=== PATIENT | male | born 1955 | race Two or more races ===

== ENCOUNTER 2017-11-07 14:43 | Outpatient (CLI) | payer OTHER | END 2017-11-07 15:01 | disposition home or self-care (01) | LOC: RAD 501 14:43 | DX: R05 Cough (principal); J45.998 Other asthma ==

== ENCOUNTER 2017-12-10 08:49 | Outpatient (CLI) | payer OTHER | END 2017-12-10 09:25 | disposition home or self-care (01) | LOC: TOM 08:49 | DX: R91.1 Solitary pulmonary nodule (principal) ==

== ENCOUNTER → 2020-06-16 | Outpatient (CLI) | payer OTHER | END | disposition home or self-care (01) | LOC: TOM 10:19 | DX: J98.6 Disorders of diaphragm (principal); R91.1 Solitary pulmonary nodule; Z11.3 Encounter for screening for infections with a predominantly sexual mode of transmission; Z12.5 Encounter for screening for malignant neoplasm of prostate; Z12.11 Encounter for screening for malignant neoplasm of colon; I10 Essential (primary) hypertension; Z76.0 Encounter for issue of repeat prescription ==

== ENCOUNTER 2021-01-10 08:38 | Outpatient (CLI) | payer OTHER | END 2021-01-10 08:50 | disposition home or self-care (01) | LOC: RAD 08:38 | PROVIDERS: ATTEND General Practice | DX: M79.644 Pain in right finger(s) (principal) ==

== ENCOUNTER 2021-07-11 10:26 | Emergency (ER) | payer OTHER ==
[~2021-07-11] VITALS: Ht 172.7 cm; Wt 108.0 kg
[2021-07-11] MEDS ORDERED: PARA LA PRESION (10:39)
[2021-07-11] MEDS ORDERED: MEDROLPACK PO (11:40)
== END 2021-07-11 12:31 | disposition home or self-care (01) ==
LOC: ER 10:26
DX: S60.222A Contusion of left hand, initial encounter (principal); X58.XXXA Exposure to other specified factors, initial encounter; Y93.9 Activity, unspecified; Y92.9 Unspecified place or not applicable; I10 Essential (primary) hypertension

== ENCOUNTER 2021-09-12 09:19 | Outpatient (CLI) | payer OTHER ==
[~2021-09-12 09:19] MED LIST: MEDROLPACK PO; PARA LA PRESION
== END 2021-09-12 09:31 | disposition home or self-care (01) ==
LOC: LAB 09:19
PROVIDERS: ATTEND General Practice
DX: Z76.0 Encounter for issue of repeat prescription (principal); I10 Essential (primary) hypertension; J45.20 Mild intermittent asthma, uncomplicated; E11.8 Type 2 diabetes mellitus with unspecified complications; Z11.3 Encounter for screening for infections with a predominantly sexual mode of transmission; Z13.220 Encounter for screening for lipoid disorders; Z12.5 Encounter for screening for malignant neoplasm of prostate; Z12.11 Encounter for screening for malignant neoplasm of colon; E66.9 Obesity, unspecified

== ENCOUNTER 2021-09-14 10:36 | Outpatient (CLI) | payer OTHER | END 2021-09-14 10:41 | disposition home or self-care (01) | LOC: LAB 10:36 | PROVIDERS: ATTEND General Practice | DX: R80.9 Proteinuria, unspecified (principal); I10 Essential (primary) hypertension; E11.9 Type 2 diabetes mellitus without complications ==

== ENCOUNTER 2021-10-12 14:59 | Outpatient (CLI) | payer OTHER | END 2021-10-12 15:01 | disposition home or self-care (01) | LOC: LAB 14:59 | PROVIDERS: ATTEND General Practice | DX: N18.1 Chronic kidney disease, stage 1 (principal); Z12.9 Encounter for screening for malignant neoplasm, site unspecified; N39.0 Urinary tract infection, site not specified; R91.1 Solitary pulmonary nodule ==

== ENCOUNTER 2022-12-11 06:08 | Outpatient (CLI) | payer OTHER | END 2022-12-11 06:29 | disposition home or self-care (01) | LOC: LAB 06:08 | PROVIDERS: ATTEND Radiology Diagnostic Radiology | DX: D64.9 Anemia, unspecified (principal) ==

== ENCOUNTER 2022-12-12 07:12 | Outpatient (CLI) | payer OTHER | END 2022-12-12 07:30 | disposition home or self-care (01) | LOC: MRI 07:12 | PROVIDERS: ATTEND Internal Medicine Hematology & Oncology | DX: D64.9 Anemia, unspecified (principal); L04.2 Acute lymphadenitis of upper limb ==

== ENCOUNTER 2023-05-20 12:12 | Outpatient (CLI) | payer OTHER | END 2023-05-20 12:23 | disposition home or self-care (01) | LOC: TOM 12:12 | PROVIDERS: ATTEND General Practice | DX: S22.42XA Multiple fractures of ribs, left side, initial encounter for closed fracture (principal); R07.89 Other chest pain; T79.8XXD Other early complications of trauma, subsequent encounter; Z48.00 Encounter for change or removal of nonsurgical wound dressing ==

== ENCOUNTER 2024-03-24 14:44 | Outpatient (CLI) | payer OTHER | END 2024-03-24 14:51 | disposition home or self-care (01) | LOC: RAD 14:44 | PROVIDERS: ATTEND General Practice | DX: J45.901 Unspecified asthma with (acute) exacerbation (principal); J20.9 Acute bronchitis, unspecified; R05.9 Cough, unspecified; R06.02 Shortness of breath ==

== ENCOUNTER 2024-03-29 11:25 | Emergency (ER) | payer OTHER ==
[~2024-03-29] VITALS: Ht 177.8 cm; Wt 105.2 kg
[2024-03-29] MEDS ORDERED: METHYLPREDNISOLONE SOD SUCC 125 MG VIAL IV STA (13:05)
[2024-03-29] MEDS ORDERED: ENALAPRILAT DIHYDRATE 2.5 MG/2 ML VIAL IV STA (13:06)
[2024-03-29] MEDS ORDERED: LEVALBUTEROL HCL 1.25 MG/3 ML SOLUTION IH SCH (13:15)
[2024-03-29 14:37] LABS: HEMATOCRIT 41.9 % (39.0-48.0); HEMOGLOBIN 13.9 g/dL (13-16.00); MEAN CELL VOLUME 86.9 fL (80.0-100.00); MEAN CORPUSCULAR HEMOGLOBIN 28.7 pg (27.00-32.0); MEAN CORPUSCULAR HGB CONC 33.1 g/dl (32.0-36.0); PLATELET COUNT 274 K/uL (150-450); RED BLOOD COUNT 4.83 M/uL (4.00-6.00); RED CELL DISTRIBUTION WIDTH 13.4 % (11.5-14.5)
[2024-03-29 15:15] LABS: CALCIUM 9.8 mg/dL (8.5-10.1); CREATININE SERUM 1.39 mg/dL (0.70-1.30); GFR 50.81; POTASSIUM 5.37 mEq/L (3.5-5.1)
[2024-03-29] MEDS ORDERED: MAGNESIUM SULFATE 50% 1,000 MG/2 ML VIAL IV STA (19:35)
[2024-03-29] MEDS ORDERED: IPRATROPIUM/ALBUTEROL SULFATE 3 ML AMPUL.NEB IH SCH (19:45)
[2024-03-29 23:06] LABS: ABG PH 7.432 (7.35-7.45); ABG PO2 65.5 mmHg (80-100); ABG pCO2 41.6 mmHg (35-45); BASE EXCESS 2.6 mmol/l; BICARBONATE 27.1 mmol/l (23-25); Tco2 28.4 mmol/l
[2024-03-29 23:07] LABS: allen test SATISFACTORY; o2 21 %; puncture site RADIAL LEFT
[2024-03-29 23:14] LABS: SaO2 93.4 %
[2024-03-29] MEDS ORDERED: 0.9 % SODIUM CHLORIDE 500 ML IV ONE (23:45)
[2024-03-29] MEDS ORDERED: GUAIFEN/DEXTROMETHORPHAN/PE 10 ML BLIST.PACK PO ONE (23:45)
[2024-03-29] MEDS ORDERED: AZITHROMYCIN 500 MG VIAL IV ONE (23:45)
== END 2024-03-30 01:23 | disposition home or self-care (01) ==
LOC: ER 11:27
PROVIDERS: General Practice
DX: J45.909 Unspecified asthma, uncomplicated (principal); Z20.822 Contact with and (suspected) exposure to COVID-19
CPT/HCPCS: 36415; 71046; 82803; 94640; 96365; 99284; J0456; J3475; J3490; J7042

== ENCOUNTER 2024-05-04 10:38 | Outpatient (CLI) | payer OTHER | END 2024-05-04 10:41 | disposition home or self-care (01) | LOC: RAD 10:38 | PROVIDERS: ATTEND General Practice | DX: M25.552 Pain in left hip (principal) ==

== ENCOUNTER 2024-06-03 10:56 | Outpatient (CLI) | payer OTHER ==
[~2024-06-03 10:56] MED LIST changes: +DICLOFENAC POTA50 MG PO
== END 2024-06-03 11:09 | disposition home or self-care (01) ==
LOC: TOM 10:56
PROVIDERS: ATTEND Internal Medicine Pulmonary Disease
DX: R91.1 Solitary pulmonary nodule (principal)

== ENCOUNTER 2024-10-19 16:09 | Emergency (ER) | payer OTHER ==
[~2024-10-19] VITALS: Ht 172.7 cm; Wt 103.4 kg
== END 2024-10-19 21:51 | disposition home or self-care (01) ==
LOC: ER 16:09
DX: K64.5 Perianal venous thrombosis (principal); I10 Essential (primary) hypertension; E11.9 Type 2 diabetes mellitus without complications

== ENCOUNTER 2024-12-09 09:06 | Outpatient (CLI) | payer OTHER | END 2024-12-09 09:20 | disposition home or self-care (01) | LOC: SONOGRAMA 09:06 → MRI 09:06 → SONOGRAMA 09:20 → MRI 09:20 | PROVIDERS: ATTEND General Practice | DX: D64.9 Anemia, unspecified (principal); R31.9 Hematuria, unspecified ==

== ENCOUNTER 2025-04-18 08:15 | Emergency (ER) | payer OTHER ==
[~2025-04-18] VITALS: Ht 175.3 cm; Wt 93.9 kg
[2025-04-18 08:56] VITALS: BP 157/93; O2SAT 95
[2025-04-18] MEDS ORDERED: METFORMIN HCL500 M3 PO (09:06)
[2025-04-18] MEDS ORDERED: COZAAR100 MG PO (09:07)
[2025-04-18] MEDS ORDERED: PROAIR RESPICL90 MCG IH (09:07)
[2025-04-18] MEDS ORDERED: IPRATROPIUM BROMIDE 0.5 MG/2.5 ML AMPUL.NEB IH ONE (09:30)
[2025-04-18] MEDS ORDERED: LEVALBUTEROL HCL 1.25 MG/3 ML SOLUTION IH ONE (09:30)
[2025-04-18] MEDS ORDERED: GUAIFENESIN 200 MG/10 ML BLIST.PACK PO ONE (09:30)
[2025-04-18] MEDS ORDERED: ACETAMINOPHEN 500 MG GEL..CAP PO ONE (09:30)
[2025-04-18 09:57] LABS: BASO % 0.4 % (0.1-1.2); EOS # 0.03 (0.04-0.54); EOS % 0.6 % (0.7-7.0); LYMPH # 1.64 (1.18-3.74); LYMPH % 32.7 % (19.3-53.1); MEAN PLATELET VOLUME 9.40 fl (9.4-12.4); MONO # 0.62 (0.24-0.82); NEUT # 2.69 (1.56-6.13); NEUT % 53.7 % (34.0-71.1); RED CELL DISTRIBUTION WIDTH 15.3 % (11.6-14.4)
[2025-04-18 10:01] LABS: MONO % 12.4 % (4.7-12.5)
[2025-04-18 10:17] LABS: BUN CREA RATIO 25.0 (7.0-25.0); COVID-19 AG NEGATIVE (NEGATIVE); CREATININE SERUM 0.8 mg/dL (0.70-1.30); GFR 95.85; GLUCOSE FASTING 103.0 mg/dL (65-100); OSMOLALITY SERUM 284.0 MOSM/KG (275-295)
== END 2025-04-18 13:23 | disposition home or self-care (01) ==
LOC: ER 08:16
PROVIDERS: General Practice
DX: J40 Bronchitis, not specified as acute or chronic (principal); Z20.822 Contact with and (suspected) exposure to COVID-19; E11.9 Type 2 diabetes mellitus without complications; Z79.84 Long term (current) use of oral hypoglycemic drugs; Z87.09 Personal history of other diseases of the respiratory system; I10 Essential (primary) hypertension